=== PATIENT | male | born 1995 | race Two or more races ===

== ENCOUNTER 2023-03-21 20:45 | Emergency (ER) | payer MEDICAID, OTHER ==
[~2023-03-21] VITALS: Ht 185.4 cm; Wt 78.1 kg
[2023-03-21 20:56] VITALS: BP 149/71; PULSE 92; RESP 16; O2SAT 99
[2023-03-21 22:03] LABS: Urine Bacteria NONE SEEN /hpf (None Seen); Urine Blood Negative /uL (Negative); Urine Clarity HAZY (Clear); Urine Color Colorless (Yellow); Urine Protein, UAD Negative (Negative); Urine Specific Gravity 1.017 (1.001-1.035); Urine Urobilinogen Normal (Negative); Urine WBC 1 /hpf (0 - 3)
== END 2023-03-22 00:20 | disposition left against medical advice (07) ==
LOC: ER 20:45
DX: N50.819 Testicular pain, unspecified (principal)
CPT/HCPCS: 81001